=== PATIENT | male | born 1940 ===

== ENCOUNTER → 2017-06-10 | Day surgery (SDC) | payer MEDICARE ==
--- NOTE | 2017-06-10 11:41 | CP.SDSHP ---
Same Day Surgery H & P - History Proposed Procedure: US guided FNA of right thyroid nodule Pre-Op Diagnosis: Thyroid nodule - Physical Exam General Appearance: Appears well Mental Status: Alert & Oriented x3 - Impression Impression: Pt with a 1.5 cm solid right thyroid nodule Pt. Evaluated Today:Candidate for Anesthesia & Procedure: No - Date & Time Date: 06/10/17 Time: 11:35 Short Stay Discharge - Short Stay Discharge Admitting Diagnosis/Reason for Visit: E04.1-THYROID NODULE Disposition: HOME/ ROUTINE
[2017-06-10 11:47] VITALS: BMI 24.3
--- NOTE | 2017-06-10 11:47 | PCM.SURG1 ---
Surgeon's Initial Post Op Note - Surgeon's Notes Surgeon: Domenic Varela MD Clinical Services Consultant: NONE Type of Anesthesia: Local Pre-Operative Diagnosis: Thyroid nodules Operative Findings: US showed a solid 1.5 cm thyroid nodule. Post-Operative Diagnosis: Thyroid nodule Operation Performed: US guided FNA of right thyroid nodule Specimen/Specimens Removed: 25 g FNA x 5 Estimated Blood Loss: EBL {In ML}: 0 Blood Products Given: N/A Drains Used: No Drains Post-Op Condition: Fair Date of Surgery/Procedure: 06/10/17 Time of Surgery/Procedure: 11:40
--- NOTE | 2017-06-10 12:50 | US ---
PROCEDURE: Date of Procedure: 06/10/2017 PROCEDURE: 1. Ultrasound guided FNA of right thyroid nodule, CPT 27420 2. Ultrasound guidance for FNA, 54996 Medications: 4cc 1% Lidocaine HISTORY: Enlarged right thyroid nodule. TECHNIQUE: Following informed consent and procedure time-out, a limited ultrasound patient's neck confirmed the presence of a 1.5 cm complex right thyroid nodule which appears solid but has enhanced through transmission characteristic of a cyst. After the patient's neck was prepped and draped in the usual sterile fashion, the skin was anesthetized with 1% lidocaine. Ultrasound-guided fine needle aspiration was then performed of the dominant right thyroid nodule. A total of 5 passes were made into the nodule with 25 gauge needle under ultrasound guidance. The FNA specimen was sent for routine pathology. Post biopsy ultrasound showed no hematoma. IMPRESSION: Ultrasound-guided FNA of the dominant right thyroid nodule.
== END | disposition home or self-care (01) ==
LOC: C.SPRAD 09:38
PROVIDERS: ATTEND Radiology Vascular & Interventional Radiology
DX: E04.2 Nontoxic multinodular goiter (principal)